=== PATIENT | male | born 1950 | race Caucasian/White ===

== ENCOUNTER → 2019-02-07 | Outpatient (CLI) | payer OTHER | LOC: COL.RAD 13:15 | DX: M51.17 Intervertebral disc disorders with radiculopathy, lumbosacral region (principal); M12.88 Other specific arthropathies, not elsewhere classified, other specified site ==

== ENCOUNTER → 2019-03-02 | Outpatient (CLI) | payer OTHER | LOC: MHCPAIN 07:38 | DX: G89.29 Other chronic pain (principal); M47.817 Spondylosis without myelopathy or radiculopathy, lumbosacral region; M53.3 Sacrococcygeal disorders, not elsewhere classified | CPT/HCPCS: G0463 ==

== ENCOUNTER → 2019-03-07 | Outpatient (CLI) | payer OTHER | LOC: MHCPAIN 12:19 | DX: M47.817 Spondylosis without myelopathy or radiculopathy, lumbosacral region (principal); M54.16 Radiculopathy, lumbar region; M53.3 Sacrococcygeal disorders, not elsewhere classified | CPT/HCPCS: G0260; J1040; J1100; Q9967 ==

== ENCOUNTER → 2019-04-05 | Outpatient (CLI) | payer OTHER | LOC: MHCPAIN 09:53 | DX: G89.29 Other chronic pain (principal); M47.817 Spondylosis without myelopathy or radiculopathy, lumbosacral region; M53.3 Sacrococcygeal disorders, not elsewhere classified | CPT/HCPCS: G0463 ==

== ENCOUNTER 2024-02-23 08:42 | Observation (INO) | payer OTHER ==
[~2024-02-23] VITALS: Ht 167.6 cm; Wt 87.4 kg
[2024-02-23] VITALS (11 sets, daily range): BP systolic 119–130; BP diastolic 60–76; PULSE 58–73; TEMP 97.3–98.7
[~2024-02-23 08:42] MED LIST: Acetaminophen 500 MG TAB PO SCH; Celecoxib 200 MG CAP PO SCH; Gabapentin 100 MG CAP PO SCH; ceFAZolin 1 G in Water For Injection,Sterile 10 ML IV SCH
[2024-02-23] MEDS ORDERED: Meclizine 25 MG TAB PO SCH (09:00)
[2024-02-23] MEDS ORDERED: NS 1,000 ML IV SCH (09:00)
[2024-02-23] MEDS ORDERED: Famotidine 20 MG TAB PO SCH (09:00)
[2024-02-23] MEDS ORDERED: Midazolam 2 MG/2 ML VIAL ONE (09:36)
[2024-02-23] MEDS ORDERED: Lidocaine PF 2% (20 MG/ML) 5 ML VIAL ONE ×2 (09:36→09:44)
[2024-02-23] MEDS ORDERED: NS 30 ML IV ONE (09:36)
[2024-02-23] MEDS ORDERED: dexAMETHasone 10 MG/ML VIAL ONE ×2 (09:37→09:44)
[2024-02-23] MEDS ORDERED: Ondansetron 4 MG/2 ML VIAL ONE (09:44)
[2024-02-23] MEDS ORDERED: Rocuronium 50 MG/5 ML Multi-Dose VIAL ONE ×2 (09:44→12:56)
[2024-02-23] MEDS ORDERED: NS 10 ML IV ONE (09:44)
[2024-02-23] MEDS ORDERED: Ketorolac 30 MG/ML VIAL ONE (09:44)
[2024-02-23] MEDS ORDERED: ZOLOFT 100MG100 MG PO (10:23)
[2024-02-23] MEDS ORDERED: LAMICTAL200 MG PO (10:24)
[2024-02-23] MEDS ORDERED: PRIL40 PO (10:24)
[2024-02-23] MEDS ORDERED: PROSCAR 5MG5 MG PO (10:24)
[2024-02-23] MEDS ORDERED: VITAMIN D3400 I1 PO (10:25)
[2024-02-23] MEDS ORDERED: Ondansetron 4 MG/2 ML VIAL IV PRN ×2 (11:30→13:45)
[2024-02-23] MEDS ORDERED: hydrALAZINE 20 MG/ML 1 ML VIAL IV PRN (11:30)
[2024-02-23] MEDS ORDERED: droPERidol 2.5 MG/ML 2 ML VIAL IV PRN (11:30)
[2024-02-23] MEDS ORDERED: HYDROmorphone 1 MG/1 ML SYRINGE [PACU/SDC ONLY] IV PRN (11:30)
[2024-02-23] MEDS ORDERED: fentaNYL 50 MCG/ML 1 ML SYRINGE/VIAL [PACU/SDC ONLY] IV PRN (11:30)
[2024-02-23] MEDS ORDERED: Topical Skin Adhesive 1 EACH (1 ML) TOP ONE (11:52)
[2024-02-23] MEDS ORDERED: NS 100 ML IV ONE ×2 (11:57)
[2024-02-23] MEDS ORDERED: Phenylephrine 10 MG/ML VIAL ONE (11:57)
[2024-02-23] MEDS ORDERED: Morphine 4 MG/ML VIAL IV PRN (13:45)
[2024-02-23] MEDS ORDERED: oxyCODONE 5 MG TAB PO PRN ×2 (13:45)
[2024-02-23] MEDS ORDERED: Naloxone 0.4 MG/ML VIAL IV PRN (13:45)
[2024-02-23] MEDS ORDERED: LR 1,000 ML IV SCH (13:45)
--- NOTE | 2024-02-23 15:01 | NUR ---
PATIENT UP TO FLOOR AT APPROXIMATELY 1455. POST OP VITALS RUNNING AND WNL. POST OP FLUIDS INFUSING INTO LEFT AC. PATIENT DROWSY BUT AROUSABLE. PATIENT TOLERATING ICE CHIPS. NO FURTHER NEEDS. CALL LIGHT IN REACH.
[2024-02-23] MEDS ORDERED: Acetaminophen 500 MG TAB PO SCH (16:00)
--- NOTE | 2024-02-23 16:05 | NUR ---
PATIENT ALERT AND ORIENTED BUT VERY DROWSY. PATIENT REPORTS INCREASED PAIN, VS AND PATIENT'S DROWSINESS APPEAR THAT PAIN IS SOMEWHAT CONTROLLED. PATIENT RESTING IN BED. IV FLUIDS INFUSING LEFT AC. NO FURTHER NEEDS. CALL LIGHT IN REACH.
[2024-02-23] MEDS ORDERED: ceFAZolin 2 G in Water For Injection,Sterile 20 ML IV SCH (17:45)
--- NOTE | 2024-02-23 19:26 | NUR ---
Bedside report received from BELLA Vasquez. Pt awake in bed with no complaints. Call light within reach.
--- NOTE | 2024-02-23 20:10 | NUR ---
MARICARMEN for Kpad for neck pain per Dr. Harley.
--- NOTE | 2024-02-23 21:44 | NUR ---
Pt awake in bed with complaints of pain rating 10/10. Pt states that his pain is located in the back of his neck. Scheduled Tylenol administered per jul. Kpad in place on back of pt neck per pt request. Pt expresses frustration with this nurse regarding pain medication stating that his pain medication is 2 hours late. This nurse educated pt regarding PRN pain medication and that pt was not due for PRN pain medication and last time given per jul. PRN Jade administered per jul. Shift assessment completed. VSS. Simms catheter in place draining hazy reddish/pink urine into simms catheter bag with no complications. ABD lap sites x5 patent with no swelling, redness, or drainage. ANGELITO drain intact draining bright red drainage with no complications. Pt has no request at this time. Call light within reach.
--- NOTE | 2024-02-23 22:00 | NUR ---
Pt's called and was being very short with BELLA Rivers. She stated pt called her stating he was in a lot of pain and that his medications were late. She wanted to know if she needed to called the Dr herself. She would not let me explain that some of his medications are scheduled and that they were given an an appropriate time and explain PRN medications. She just continued for several minutes repeating herself. Finally I stated that I would need to get off the phone wit her so that I could go and assess him and see what could be done for pain medication. Pts scheduled medications were given at an appropriate time. Pt appeared to be resting comfortably. He then stated that his pain was 25/10 when I asked him to rate it. I then stated, "this is the worst pain you have even been in and that 10 is the highest the scale goes." Pt then stated, no, not the worst, I'll give it a 9. Pt then stated that he has neck problems in which I do see that he does have a k-pad on. He was able to get a PRN barrett, which I did give at this time. Pt denies any other needs at this time, will continue to monitor
[2024-02-24] VITALS (13 sets, daily range): BP systolic 131–171; BP diastolic 66–77; PULSE 56–67; TEMP 89–98.3
--- NOTE | 2024-02-24 03:16 | NUR ---
Pt has complaints of pain in ABD rating 7/10. PRN Roxicodone and scheduled Tylenol administered per emar. Pt states he feels pain his not being managed well during hospital stay. This nurse provided education regarding pain following procedure and pain goal number. Pt stated he understands pain will not be at a zero but states his pain goal is 3 or 4 out 10 on numeric scale. Pt has no further request at this time. Call light within reach.
[2024-02-24] MEDS ORDERED: Sertraline 100 MG TAB PO SCH (05:00)
[2024-02-24] MEDS ORDERED: lamoTRIgine 100 MG TAB PO SCH (05:00)
[2024-02-24 06:03] LABS: HEMOGLOBIN 12.4 g/dl (13.5-18.0)
[2024-02-24 06:25] LABS: CALCIUM 8.8 mg/dL (8.4-10.2); CREATININE, serum 1.28 mg/dL (0.72-1.25)
[2024-02-24] MEDS ORDERED: Omeprazole 40 MG **** subs to Pantoprazole 40 MG PO SCH (07:00)
[2024-02-24] MEDS ORDERED: oxyCODONE 5 MG TAB PO PRN (09:00)
[2024-02-24] MEDS ORDERED: Finasteride 5 MG TAB PO SCH (09:00)
[2024-02-24] MEDS ORDERED: Morphine 4 MG/ML VIAL IV PRN (09:00)
--- NOTE | 2024-02-24 09:50 | NUR ---
MEHDI VITAL'Jd. PATIENT AMBULATED TO BATHROOM AND VOIDED WITH NO ISSUES.
--- NOTE | 2024-02-24 10:33 | NUR ---
medical case worker met with patient Chance and Salome (P# [phone]) at bedside to discuss discharge planning. Patient stated that he lives in [place] with his Salome and that she is his DPOA. He relayed that his PCP is with the [facility], the pharmacy that he uses is [facility], and that he has no trouble accessing or affording his medication as the [facility] covers it. Patient denied using any DMEs at home, reported that he is independent in ADLs and transportation needs, and that he does not and has not used any home services. Patient denied any additional concerns regarding discharge at this time. Plan: D/C Home
--- NOTE | 2024-02-24 15:26 | NUR ---
PATIENT ALERT AND ORIENTED X4. VSS. PATIENT HERE FOR ROBOTIC PARTIAL NEPHRECTOMY. LAPS X5 CDI WITH SKIN GLUE. PATIENT ON RA. IV TO LEFT WRIST WITH LR RUNNING AT 125ML/HOUR. PATIENT REPORTS PAIN 8/10, REQUESTS PRN PAIN MEDS. NO FURTHER NEEDS. CALL LIGHT IN REACH.
--- NOTE | 2024-02-24 15:27 | NUR ---
ANGELITO DRAIN PULLED, COVERED WITH GAUZE/TEGADERM. PATIENT TOLERATED WELL.
--- NOTE | 2024-02-24 20:00 | NUR ---
UPON SHIFT ASSESSMENT, GIRMA WAS IN BEDSIDE RECLINER AND A&O X4. HE C/O 7/10 ABDOMINAL PAIN AND PRN NORCO WAS GIVEN. LAP SITES ARE GLUED AND EDGES WELL APPROXIMATED, HOWEVER, UMBILICUS LAP SIDE SLIGHTLY RED AND WARM-NO DRAINAGE NOTED. FORMER ANGELITO SITE COVERED IN GAUZE AND TEGADERM-GAUZE MODERATE BRIGHT RED BLOOD-NO ACTIVE BLEEDING. PATIENT VS ARE WNL, WITH EXCEPTION OF BP-171 SYSTOLIC D/T PAIN-WILL REASSESS FOLLOWING NORCO. CALL LIGHT WITHIN REACH.
[2024-02-25] VITALS (7 sets, daily range): BP systolic 107–134; BP diastolic 62–71; PULSE 56–65; TEMP 98–98.5
--- NOTE | 2024-02-25 02:46 | NUR ---
PATIENT 02 SAT 89-90% ON RA WHILE ASLEEP. PLACED O2 NC AT 0.5L O2 NOW 93%.
--- NOTE | 2024-02-25 10:43 | NUR ---
Initial visit; Patient thanked [employer] for stopping and states he is preparing to be discharged and declines spiritual care at this time.
[2024-02-25] MEDS ORDERED: ROXICODONE 55 MG/TAB PO (12:34)
--- NOTE | 2024-02-25 14:02 | NUR ---
PATIENT DISCHARGING HOME VIA WC TO PERSONAL VEHICLE WITH DAUGHTER. GAVE DISCHARGE INSTRUCTIONS, E-SCRIPT SENT, DISCUSSED F/U APT AND ANSWERED QUESTIONS/CONCERNS. DC'D LEFT AC IV AND COVERED SITE WITH GAUZE & COBAN. PATIENT IS DRESSED, PACKED, AND DISCHARGED TO HOME.
== END 2024-02-25 14:02 | disposition home or self-care (01) ==
LOC: SDCO 08:42 → SURG 14:52 → SDCO 14:52 → SURG 02-24 14:14 → SDCO 02-25 14:02 → SURG 02-25 14:02
PROVIDERS: ADMIT Urology
DX: C64.1 Malignant neoplasm of right kidney, except renal pelvis (principal); C61 Malignant neoplasm of prostate; K21.9 Gastro-esophageal reflux disease without esophagitis
CPT/HCPCS: OP; A4314; A9284; G0378; J0688; J0690; J1100; J1170; J1885; J2250; J2371; J2405; J2704; J2795; J3010; J7030; J7120